=== PATIENT | female | born 1940 | race Caucasian/White ===

== ENCOUNTER 2019-02-01 12:18 | Emergency (ER) | payer MEDICARE ==
[~2019-02-01] VITALS: Ht 167.6 cm; Wt 90.7 kg
[2019-02-01 12:29] VITALS: BP 155/83
[2019-02-01 12:44] VITALS: BP 155/83
[2019-02-01] MEDS ORDERED: LIDOCAINE 1% VIAL ONE (12:48)
[2019-02-01] MEDS ORDERED: ADACEL VIAL IM ONE ×2 (12:49→13:00)
[2019-02-01] MEDS ORDERED: TRIPLE ANTIBIOTIC OINTMENT TP ONE (12:49)
--- NOTE | 2019-02-01 12:54 | ER.PDOC ---
General Chief Complaint: Trauma Stated Complaint: FALL Time seen by MD: 12:50 Source: patient Exam Limitations: no limitations History of Present Illness Initial Comments Facial and both thumbs injured after patient tripped and fell. Occurred: just prior to arrival Severity: moderate Injuries/Pain Location: head, face, upper extremity Context: Tripped Loss of Consciousness: No Loss of Consciousness Associated Symptoms: denies symptoms Allergies: Coded Allergies: No Known Drug Allergies (Verified Allergy, Unknown, 02/01/19) Past Medical History Medical History: cardiac problems, high cholesterol, hypertension, thyroid disease, other Surgical History: cholecystectomy, hip, hysterectomy Social History Smoking: non-smoker Alcohol Use: none Drug Use: none Review of Systems Constitutional: no symptoms reported Ears, Nose, Mouth, Throat: see HPI Respiratory: no symptoms reported Cardiovascular: no symptoms reported Gastrointestinal: no symptoms reported Genitourinary: no symptoms reported Musculoskeletal: see HPI All Other Systems: Reviewed and Negative Physical Exam General Appearance: No Apparent Distress, WD/WN Head: Contusions Eyes: bilateral eye normal inspection Ears, Nose, Mouth, Throat: Hearing Grossly Normal, Dental Injury (right upper incissors) Neck: Non-Tender, Normal Alignment, Nexus criteria neg, Normal Inspection 1 - Abrasion 2 - abrasion 3 - Laceration inner aspect of upper lip Cardiovascular/Respiratory: Regular Rate, Rhythm, No M/R/G, Normal Peripheral Pulses, No JVD, Normal Breath Sounds, No Respiratory Distress Gastrointestinal: Normal Bowel Sounds, No Organomegaly, No Pulsatile Mass, Non Tender, Soft Back: Normal Inspection, No CVA Tenderness, No Vertebral Tenderness Extremities: No Evidence of Injury, Normal Range of Motion, Non-Tender, No Pedal Edema 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 NML as Tested, No Motor/Sensory Deficits, Alert, Normal Mood/Affect, Oriented x 3 Skin: Normal Color, Warm/Dry, Other (Laceration both thumbs) [place] Coma Score Best Eye Response: (4) Open Spontaneously Best Verbal Response: (5) Oriented Best Motor Response: (6) Obeys Commands ED LACERATION WOUND REPAIR # of Wounds/Lacerations Presen: 2 Wound Location & Length (Requi: Face and left thumb Wound Length (cm): 2 Anesthesia: 1% Lidocaine Volume Anesthetic (ccs): 5 Wound's Depth, Shape: irregular Irrigated w/ Saline (ccs): 50 Wound Debrided: minimal Wound Repaired With: sutures Suture Size/Type: 5:0 (Chromic for inner lip repair), 4:0, prolene Suture Style: interupted Number of Sutures: 4 Sterile Dressing Applied?: Yes Results/Orders Results/Orders Orders - SHEKHAR NORTH MD Ct Facial Bones Wo Contrast (02/01/19 12:49) Ct Head Wo Contrast (02/01/19 12:49) Diph,Pertuss(Acell),Tet Vac/Pf (Adacel V (02/01/19 13:00) Lidocaine Hcl (Lidocaine 1% Vial) (02/01/19 12:48) Neomycin/Bacitracin/Polymyxinb (Triple A (02/01/19 12:49) Diph,Pertuss(Acell),Tet Vac/Pf (Adacel V (02/01/19 12:49) Ct Cervical Spine (02/01/19 13:35) Vital Signs Date Time Temp Pulse Resp B/P (MAP) Pulse Ox O2 Delivery O2 Flow Rate FiO2 02/01/19 12:44 98.1 72 16 155/83 (107) 100 Room Air 02/01/19 12:44 16 02/01/19 12:29 98.1 72 16 100 Room Air 02/01/19 12:29 98.1 72 16 Administered Medications Medications (Trade) Dose Ordered Sig/Ave Route PRN Reason Start Time Stop Time Status Last Admin Dose Admin Diphtheria/ Tetanus/Acell Pertussis (Adacel Vial) 0.5 ml ONCE ONCE IM 02/01/19 13:00 02/01/19 13:01 DC 02/01/19 13:27 [address] head: 1. Small amount of posttraumatic subarachnoid hemorrhage overlying high left frontal lobe. 2. No additional intracranial hemorrhage. No hydrocephalus, mass effect, or midline shift. 3. 9 mm calcified meningioma overlying the left occipital lobe. No mass-effect upon the underlying brain parenchyma. 4. Minimal chronic small vessel white matter ischemic changes. CT Facial: Essentially nondisplaced fracture of the anterior nasal spine with mild adjacent subcutaneous emphysema and mild soft tissue swelling involving the right upper lobe. 2. No additional facial or mandibular fracture. 3. Additional findings, as above. Departure Time of Disposition: 14:10 Disposition: 02 XFER S[facility]-TRM HOSP Impression: Primary Impression: Subarachnoid hemorrhage Additional Impressions: Facial bone fracture Laceration Facial injury Fall Condition: Stable Referrals: PCP,UNKNOWN (PCP) PRIMARY CARE PROVIDER Comments Transfer to [facility] ED for Dr. Meng Duration or Time Spent with Pa: 60 mins Problem Qualifiers Additional Impressions: Facial bone fracture Encounter type: initial encounter Facial bone/location: other facial bone Fracture type: closed Laterality: unspecified laterality Qualified Codes: S02.80XA - Fracture of other specified skull and facial bones, unspecified side, initial encounter for closed fracture Facial injury Encounter type: initial encounter Qualified Codes: S09.93XA - Unspecified injury of face, initial encounter Fall Encounter type: initial encounter Qualified Codes: W19.XXXA - Unspecified fall, initial encounter SHEKHAR NORTH MD Feb 01, 2019 12:54
--- NOTE | 2019-02-01 12:58 | NUR ---
WOUNDCARE DR NORTH AT BEDSIDE TO CLEAN AND SUTURE WOUNDS. NEOSPORIN APPLIED TO ABRASIONS TO NOSE, UPPER LIP, BILAT THUMB LACS. SUTURES TO L THUMB COVERED WITH ST BANDAGE. BANDAGE APPLIED TO R THUMB ABRASION.
--- NOTE | 2019-02-01 13:19 | NUR ---
CT PT TO CT VIA STRETCHER IN STABLE CONDITION.
--- NOTE | 2019-02-01 13:40 | DIREP ---
PROCEDURE:CT MAXILLOFACIAL W/O COMPARISON:[facility], CT, CT HEAD BRAIN W/O CONTRAST, 02/01/2019, 01:25 PM. INDICATIONS:Pain/injury S/P fall TECHNIQUE:Helical CT images were obtained from superior to the frontal sinuses through the mandible without the administration of IV contrast. Axial, sagittal, and coronal images are provided. Images are viewed in bone and soft tissue windows. FINDINGS: MANDIBLE: No fracture. No malalignment. Mild right TMJ arthrosis. ORBITS:No orbital wall fracture. The globes are intact. No extraocular muscle entrapment is identified. NASAL BONES: Essentially nondisplaced fracture of the anterior nasal spine (image 37, series 4, image 10, series [id number]). No additional nasal fracture. Mild leftward nasal septal deviation with a tiny left projecting septal spur. FACIAL BONES: Normal. No additional facial fracture. SINUSES: No sinus wall fracture. Tiny mucous retention cyst in the right sphenoid air cell. Visualized paranasal sinuses and mastoid air cells are otherwise clear. SOFT TISSUES: Mild soft tissue swelling involving the right upper lip with minimal adjacent subcutaneous emphysema associated with the anterior nasal spine fracture. No additional significant soft tissue swelling. OTHER:Small calcified meningioma from the posterior lateral aspect the tentorium overlying the left occipital lobe (as described on the concurrent head CT). CONCLUSION: 1. Essentially nondisplaced fracture of the anterior nasal spine with mild adjacent subcutaneous emphysema and mild soft tissue swelling involving the right upper lobe. 2. No additional facial or mandibular fracture. 3. Additional findings, as above. 4. This report was called by telephone at 1:34 pm on February 01, [address] Keon Banuelos Mba. Dictated by: Joel Ortega MD on 02/01/2019 at 01:30 PM
[2019-02-01 13:45] VITALS: BP 155/83
--- NOTE | 2019-02-01 13:45 | DIREP ---
PROCEDURE:CT HEAD OR BRAIN W/O CONTRAST COMPARISON:[facility], CT, CT MAXILLOFACIAL W/O, 02/01/2019, 01:03 PM. INDICATIONS:Pain/injury S/P fall TECHNIQUE:Axial CT images were obtained from vertex to the skull base without the administration of IV contrast. FINDINGS: VENTRICLES: The ventricles are normal in size and configuration for age. No hydrocephalus. CEREBRUM: Small amount of posttraumatic subarachnoid hemorrhage overlying the high left frontal lobe (images 19 and 20, series 3). Minimal chronic small vessel white matter ischemic changes. A small calcified meningioma is seen overlying the left occipital lobe adjacent the posterior lateral aspect of the tentorium, measuring 9 x 9 mm (image 13, series 3). No mass-effect upon the underlying brain parenchyma. No midline shift. No CT evidence of acute infarction. CEREBELLUM: Normal for age. BRAINSTEM: Normal. BASAL CISTERNS: Normal. SKULL: Mild hyperostosis frontalis interna. No fracture. SINUSES: Normal. Visualized paranasal sinuses and mastoid air cells are clear. OTHER: No significant scalp swelling. CONCLUSION: 1. Small amount of posttraumatic subarachnoid hemorrhage overlying high left frontal lobe. 2. No additional intracranial hemorrhage. No hydrocephalus, mass effect, or midline shift. 3. 9 mm calcified meningioma overlying the left occipital lobe. No mass-effect upon the underlying brain parenchyma. 4. Minimal chronic small vessel white matter ischemic changes. 5. This report was called by telephone at 1:34 pm on February 01, [address] Keon Banuelos Mba. Dictated by: Joel Ortega MD on 02/01/2019 at 01:40 PM
--- NOTE | 2019-02-01 14:14 | DIREP ---
PROCEDURE: CT SPINE CERVICAL W/O COMPARISON:None. INDICATIONS:Pain/Injury FINDINGS: ALIGNMENT:Mild reversal of cervical lordosis. VERTEBRAE:Normal. PARASPINAL AREA:Arterial calcifications. OTHER:Complex cyst in the posterior portion of the left lobe of the thyroid gland series 3, image 12. CERVICAL DISC LEVELS C2-C3:Left facet arthrosis. C3-C4:Disc narrowing with left facet arthrosis. C4-C5:Disc narrowing, uncovertebral hypertrophy and left facet arthrosis. C5-C6:Disc narrowing with uncovertebral hypertrophy. C6-C7:Disc narrowing with uncovertebral hypertrophy. C7-T1:Normal. CONCLUSION: 1. No fractures. 2. Extensive degenerative changes throughout the cervical spine as described above. There is mild reversal of cervical lordosis. 3. Atherosclerosis. 4. Complex cyst in the left lobe of the thyroid gland. Dictated by: Timbo Otero M.D. on 02/01/2019 at 02:07 PM
[2019-02-01 14:24] LABS: BASOPHIL % 0.2 % (0.0-0.2); EOSINOPHIL # 0.1 10^3/uL (0.0-0.2); EOSINOPHIL % 1.5 % (0.0-5.0); HEMOGLOBIN 13.9 g/dL (12.0-15.0); LYMPHOCYTES # 1.5 10^3/uL (1.0-4.8); LYMPHOCYTES % 16.6 % (24.0-44.0); MEAN CELL HGB 29.4 pg (26-34); MEAN CELL HGB CONCENTRATION 32.1 g/dL (33-37); MEAN CORP VOLUME 91.5 fL (78-100); MEAN PLATELET VOLUME 12.5 fL (7.8-11.0); MONOCYTES # 0.7 10^3/uL (0.3-0.8); MONOCYTES % 7.4 % (5.0-12.0); NEUTROPHIL # 6.6 10^3/uL (1.8-7.7); NEUTROPHILS % 74.2 % (41.0-85.0); WHITE BLOOD CELL 8.9 10^3/uL (4.5-11.0)
[2019-02-01 14:41] LABS: CALCIUM 9.2 mg/dL (8.4-10.5); CARBON DIOXIDE 26.6 mmol/L (20.0-32)
[2019-02-01 14:45] VITALS: BP 144/67
--- NOTE | 2019-02-01 14:45 | NUR ---
status PT SPOUSE AT BEDSIDE.
[2019-02-01 15:39] VITALS: BP 153/68
--- NOTE | 2019-02-01 16:10 | NUR ---
TRANSFER PT [facility]TO [facility] IN STABLE CONDITION. REPORT CALLED TO SEBASTIAN CHOWDHURY.
== END 2019-02-01 16:10 | disposition short-term general hospital (02) ==
LOC: ER 12:18
DX: S06.6X9A Traumatic subarachnoid hemorrhage with loss of consciousness of unspecified duration, initial encounter (principal); S02.80XA Fracture of other specified skull and facial bones, unspecified side, initial encounter for closed fracture; S61.012A Laceration without foreign body of left thumb without damage to nail, initial encounter; S61.011A Laceration without foreign body of right thumb without damage to nail, initial encounter; S01.511A Laceration without foreign body of lip, initial encounter; E07.9 Disorder of thyroid, unspecified; E78.00 Pure hypercholesterolemia, unspecified; I10 Essential (primary) hypertension; Z90.49 Acquired absence of other specified parts of digestive tract; Z90.710 Acquired absence of both cervix and uterus; W01.0XXA Fall on same level from slipping, tripping and stumbling without subsequent striking against object, initial encounter; Y93.89 Activity, other specified; Y92.89 Other specified places as the place of occurrence of the external cause; Y99.8 Other external cause status
CPT/HCPCS: 12001; 12011; 36415; 70450; 70486; 72125; 80053; 85025; 85610; 85730; 90471; 90715; 99285; J2001